=== PATIENT | female | born 1965 | race African-American/Black ===

== ENCOUNTER 2024-05-12 23:34 | Emergency (ER) | payer MEDICAID ==
[~2024-05-12] VITALS: Ht 170.2 cm; Wt 109.0 kg
[2024-05-12 23:42] VITALS: O2SAT 98
[2024-05-13] MEDS ORDERED: ONDANSETRON HCL 4MG/2ML INJ IV ONE
[2024-05-13] MEDS ORDERED: LABETALOL 5MG/ML 4ML INJ IV ONE
[2024-05-13] MEDS: ONDANSETRON HCL 4MG/2ML INJ IV NR (00:46)
[2024-05-13] MEDS: LABETALOL 5MG/ML 4ML INJ IV NR (00:47)
[2024-05-13 00:54] LABS: BASOPHILS % 0.4 % (0.0-2.0); EOSINOPHILS % 3.6 % (0.0-5.0); HEMATOCRIT. 32.9 % (36.0-48.0); HEMOGLOBIN. 10.7 g/dL (12.0-16.0); LYMPHOCYTES % 29.3 % (20.0-50.0); MEAN CORPUSCULAR HGB CONC 32.7 g/dL (31.0-37.0); MEAN CORPUSCULAR VOLUME 97.9 fL (81.0-99.0); MEAN PLATELET VOLUME 9.1 fl (7.4-10.4); MONOCYTES % 5.8 % (2.0-8.0); NEUTROPHILS % 60.9 % (40.0-76.0); PLATELET 210 x1000/uL (130-400); RED BLOOD CELL COUNT 3.36 mill/uL (4.2-5.4); RED CELL DISTRIBUTION WIDTH 13.4 % (11.6-14.6); WHITE BLOOD COUNT 4.3 x1000/uL (4.5-11.0)
[2024-05-13 00:55] LABS: CHLORIDE 108 mEq/L (98-107); POTASSIUM 3.7 mEq/L (3.5-5.1); SODIUM 139 mEq/L (136-145)
[2024-05-13 00:56] LABS: CALCIUM 8.5 mg/dL (8.7-10.4); CARBON DIOXIDE 27 mEq/L (21-32)
[2024-05-13 01:01] LABS: CREATININE 0.8 mg/dL (0.6-1.0); ETHANOL BLOOD < 10 mg/dL (<10); GLUCOSE 91 mg/dL (70-105); UREA NITROGEN BLOOD 16 mg/dL (9-23)
[2024-05-13 01:03] LABS: TROPONIN I HIGH SENSITIVITY 4 ng/L (3.0-34)
[2024-05-13 01:27] LABS: INR 1.1; PROTHROMBIN TIME 11.7 sec (9.6-11.0)
[2024-05-13 01:45] VITALS: BP 160/77; PULSE 62; RESP 15; TEMP 97.1
[2024-05-13 02:04] LABS: CLARITY URINE CLEAR (CLEAR); COLOR URINE YELLOW (YELLOW); GLUCOSE URINE NEGATIVE (NEGATIVE); KETONES URINE NEGATIVE (NEGATIVE); LEUKOCYTE ESTERASE URINE NEGATIVE (NEGATIVE); NITRITE URINE NEGATIVE (NEGATIVE); OCCULT BLOOD URINE TRACE (NEGATIVE); PROTEIN URINE TRACE (NEGATIVE); SPECIFIC GRAVITY URINE 1.095 (1.005-1.030)
[2024-05-13] MEDS: ASPIRIN 325MG EC TABLET PO ONE (02:09)
[2024-05-13 02:12] LABS: *AMPHETAMINES SCREEN URINE NEGATIVE (NEGATIVE); *BARBITURATES SCREEN URINE NEGATIVE (NEGATIVE); *COCAINE SCREEN URINE NEGATIVE (NEGATIVE); ECSTASY MDMA SCREEN URINE NEGATIVE (NEGATIVE); METHADONE URINE SCREEN NEGATIVE (NEGATIVE); OPIATES URINE SCREEN NEGATIVE (NEGATIVE)
[2024-05-13 02:19] LABS: BACTERIA URINE NONE SEEN; MUCUS URINE TRACE /lpf (< = 2+); RBC URINE 0-2 /hpf (0-2); SQUAMOUS EPITHELIAL CELL URINE FEW /lpf (RARE/1+); WBC URINE 0-2 /hpf (0-2)
[2024-05-13 02:39] LABS: *BENZODIAZEPINES SCREEN URINE NEGATIVE (NEGATIVE); CANNABINOID URINE SCREEN PRESUMPTIVE POSITIVE (NEGATIVE); PHENCYCLIDINE URINE SCREEN NEGATIVE (NEGATIVE)
[2024-05-13] MEDS ORDERED: IOHEXOL-350 100 ML BOTTLE ONE (06:09)
== END 2024-05-13 07:48 | disposition left against medical advice (07) ==
LOC: ER 23:34 → EDBEDREQTM 05-13 03:50 → ER 05-13 07:48 → CANBEDREQ 05-13 22:37
DX: I77.75 Dissection of other precerebral arteries (principal); I16.0 Hypertensive urgency; I10 Essential (primary) hypertension; G44.209 Tension-type headache, unspecified, not intractable
CPT/HCPCS: 36415; 71045; 70450; 93005; 99291; 80305; 80048; 81003; 80320; 85025; 85610; 84484; 70496; 70498; 96374; 96375; Q9967; J3490; J2405; Z7610 ×2; G0480